=== PATIENT | male | born 1930 | race Caucasian/White ===

== ENCOUNTER 2017-10-27 10:37 | Emergency (ER) | payer OTHER, MEDICARE ==
--- NOTE | 2017-10-27 10:41 | PDOC ---
History of Present Illness - General Chief Complaint: Cold Symptoms Stated Complaint: COUGH Time Seen by Provider: 10/27/17 10:38 - History of Present Illness Initial Comments: 10/27/17 10:41 86 y/o male with significant past medical history of CVA with right sided hemiparesis, Parkinsons disease, DVTs, hyperlipidemia, hypertension, BPH, paroxysmal Afib (on Coumadin) p/w 1.5 weeks of cough. Cough has been constant, worse at night, initially non productive, now productive of clear phlegm. Family tried cough syrup and tea which has not helped. brought pt today as they cough has persisted for so long. No SOB, CP, fevers, chills, abd pain, n/v/ d, new weakness or numbness. Cough had a cold a few weeks ago. PMD is Dr. Juarez, states they were unable to get an appointment. Past History - Past Medical History Allergies/Adverse Reactions: Allergies Allergy/AdvReac Type Severity Reaction Status Date / Time bacitracin Allergy Rash Verified 07/02/16 16:44 venom-honey bee Allergy Verified 07/02/16 16:44 [bee venom (honey bee)] Home Medications: Ambulatory Orders Atorvastatin Ca [Lipitor] 20 mg PO HS 03/27/15 Carbidopa/Levodopa [Carbidopa-Levo ER 50-200 Tab] 1 each PO QID 03/27/15 Dutasteride [Avodart] 0.5 mg PO HS 03/27/15 Mirabegron [Myrbetriq] 50 mg PO HS 03/27/15 Nifedipine [Nifediac cc] 90 mg PO DAILY 03/27/15 Dorzolamide HCl/Timolol Maleat [Cosopt Eye Drops] 10 ml OP HS 01/17/16 Warfarin Na [Coumadin -] 5 mg PO DAILY@1800 01/17/16 Multivitamins [Multivit ([facility] Formulary)] 1 tab PO DAILY 07/02/16 Solifenacin Succinate [Vesicare -] 5 mg PO DAILY 07/02/16 Acetaminophen [Tylenol .Regular Strength -] 650 mg PO Q6H PRN #0 tablet Pramipexole Dihydrochloride [Mirapex -] 0.5 mg PO HS 10/27/17 Quetiapine Fumarate [Seroquel -] 50 mg PO HS 10/27/17 Anemia: No Asthma: No Cancer: Yes (Basal Cell) Cardiac Disorders: Yes (a-fib) CVA: Yes (09/2011, RIGHT HEMIPARESIS) COPD: No CHF: No Dementia: No Diabetes: No GI Disorders: No Disorders: No HTN: Yes Hypercholesterolemia: Yes Liver Disease: No Seizures: No Thyroid Disease: No - Surgical History Abdominal Surgery: No Appendectomy: No Cardiac Surgery: No Cholecystectomy: No Lung Surgery: No Neurologic Surgery: No Orthopedic Surgery: No - Suicide/Smoking/Psychosocial Hx Smoking History: Unknown if ever smoked Have you smoked in the past 12 months: No Number of Cigarettes Smoked Daily: 10 If you are a former smoker, when did you quit?: 20 yrs ago Hx Alcohol Use: No Drug/Substance Use Hx: No Substance Use Type: None Hx Substance Use Treatment: No Review of Systems - Review of Systems Comments:: 10/27/17 11:10 GENERAL/CONSTITUTIONAL: No fever or chills. No weakness. HEAD, EYES, EARS, NOSE AND THROAT: No change in vision. No ear pain or discharge. No sore throat. GASTROINTESTINAL: No nausea, vomiting, diarrhea or constipation. GENITOURINARY: No dysuria, frequency, or change in urination. CARDIOVASCULAR: No chest pain or shortness of breath. RESPIRATORY: +cough, no wheezing, or hemoptysis. MUSCULOSKELETAL: No joint or muscle swelling or pain. No neck or back pain. SKIN: No rash NEUROLOGIC: No headache, vertigo, loss of consciousness, or change in strength/ sensation. ENDOCRINE: No increased thirst. No abnormal weight change. HEMATOLOGIC/LYMPHATIC: No anemia, easy bleeding, or history of blood clots. ALLERGIC/IMMUNOLOGIC: No hives or skin allergy. *Physical Exam - Physical Exam Comments: 10/27/17 11:12 GENERAL: Awake, alert, and fully oriented, in no acute distress HEAD: No signs of trauma EYES: PERRLA, EOMI, sclera anicteric, conjunctiva clear ENT: Auricles normal inspection, hearing grossly normal, nares patent, oropharynx clear without exudates. Moist mucosa NECK: Normal ROM, supple, no lymphadenopathy, JVD, or masses LUNGS: Initial mild exp wheezing, improves with subsequent breaths, no crackles or rhonchi, good air movement, no increased WOB HEART: Regular rate and rhythm, normal S1 and S2, no murmurs, rubs or gallops ABDOMEN: Soft, nontender, normoactive bowel sounds. No guarding, no rebound. No masses EXTREMITIES: Normal range of motion, no edema. No clubbing or cyanosis. No cords, erythema, or tenderness NEUROLOGICAL: Normal speech, cranial nerves intact, +RUE and RLE weakness SKIN: Warm, Dry, normal turgor, no rashes or lesions noted. ED Treatment Course - LABORATORY CBC & Chemistry Diagram: 10/27/17 11:10 10/27/17 11:10 Medical Decision Making - Medical Decision Making 10/27/17 11:28 86-year-old male with multiple medical problems, distant smoking presents with cough for 1.5 weeks. Vitals are unremarkable, pt satting 98% on RA. Exam with initial wheezing however wheezing cleared with subsequent breaths. Patient likely has bronchitis, however will obtain CXR to r/o infiltrate. 10/27/17 12:06 Initial CXR limited, pt sent to rad dept for rpt to r/o infiltrate. O2 sat is 99 % on RA. Rpt CXR looks clear, awaiting official read. WIll tx with azithro and pred for likely bronchitis. Updated Dr. Alessandro Pal about pt, she agrees with plan. Discussed potential for INR level to rise with azithro and need to have INR checked sooner than in 2 weeks, pt and express understanding and will see Dr. Alessandro Pal next week. 10/27/17 12:27 Called radiology to obtain read of CXR. No cook pickled meat. is requesting the patient leave as she only has the aide for another 30 mins and she needs assistance getting the patient into the house. 10/27/17 12:33 Discussed repeat CXR with Dr. Shay from radiology, no sign of infiltrate or consolidation. Will treat for bronchitis. I discussed the physical exam findings, ancillary test results and final diagnoses with the patient. I answered all of the patient's questions. The patient was satisfied with the care received and felt comfortable with the discharge plan and treatment plan. The patient will call their primary care physician within 24 hours to arrange follow-up and will return to the Emergency Department with any new, persistent or worsening symptoms. *DC/Admit/Observation/Transfer Diagnosis at time of Disposition: Acute bronchitis - Discharge Dispostion Disposition: HOME Condition at time of disposition: Stable Admit: No - Referrals - Patient Instructions Printed Discharge Instructions: DI for Acute Bronchitis Additional Instructions: Take your prednisone and azithromycin as prescribed. Begin both tomorrow as you received the first dose today in the emergency department. As discussed, the azithromycin may interfere with the coumadin and thus the INR or coumadin level must be checked within 1 week. I have discussed this with Dr. Alessandro Pal who is expecting to see you in her office next week. Return to the emergency department if you have any new, worsening, or concerning symptoms. - Post Discharge Activity - Attestations Physician Attestion: 10/27/17 12:36 I, Dr. Jenaro Erickson MD, attest that this document has been prepared under my direction and personally reviewed by me in its entirety. I further attest, that it accurately reflects all work, treatment, procedures and medical decision -making performed by me.
[2017-10-27 11:03] VITALS: BP 141/72; PULSE 76; TEMP 98.7; BMI 29.0
[2017-10-27 11:20] LABS: BASO % 1.5 % (0-2.0); EOS % 2.3 % (0-4.5); MCH 31.8 pg (25.7-33.7); MCHC 34.5 g/dl (32.0-35.9); MEAN CELL VOLUME 92.3 fl (80-96); MEAN PLT VOLUME 7.7 fl (7.5-11.1); NEUT % 64.5 % (42.8-82.8); PLATELET COUNT 372 K/MM3 (134-434); RDW 12.9 % (11.9-15.9)
[2017-10-27] MEDS ORDERED: AZITHROMYCIN 500 MG TABLET PO ONE (11:31)
[2017-10-27] MEDS ORDERED: AZITHROMYCIN 500 MG TABLET ONE (11:34)
[2017-10-27 11:40] LABS: ALBUMIN 3.5 g/dl (3.5-5.0); ALK PHOS 61 U/L (32-92); ANION GAP 7 (8-16); CALCIUM 9.1 mg/dl (8.4-10.2); CO2 27 mmol/L (22-28); CREATININE 0.9 mg/dl (0.6-1.3); GLUCOSE,RANDOM 96 mg/dl (74-106); SGOT/AST 22 U/L (10-42); SGPT/ALT 10 U/L (10-40)
[2017-10-27 11:42] LABS: BILIRUBIN,TOTAL < 0.3 mg/dl (0.2-1.0)
[2017-10-27] MEDS ORDERED: AZITHROMYCIN 250 MG TABLET ONE (11:48)
[2017-10-27] MEDS ORDERED: predniSONE 20 MG TABLET (UD) PO ONE (12:05)
[2017-10-27] MEDS ORDERED: predniSONE 10 MG TABLET (UD) ONE (12:06)
[2017-10-27] MEDS ORDERED: predniSONE 20 MG TABLET (UD) ONE (12:06)
== END 2017-10-27 12:41 | disposition home or self-care (01) ==
LOC: FER 10:37
DX: J04.0 Acute laryngitis (principal); G20 Parkinson's disease; I63.9 Cerebral infarction, unspecified; E78.5 Hyperlipidemia, unspecified; I10 Essential (primary) hypertension; N40.0 Benign prostatic hyperplasia without lower urinary tract symptoms; I48.91 Unspecified atrial fibrillation; Z79.01 Long term (current) use of anticoagulants
CPT/HCPCS: 36415; 71010-TC; 71020-TC; 80053; 85025; 99281-25

== ENCOUNTER 2018-05-17 11:42 | Observation (INO) | payer OTHER, MEDICARE ==
--- NOTE | 2018-05-17 12:59 | PDOC ---
History of Present Illness - General Chief Complaint: Rectal Bleed Stated Complaint: SENT BY PMD RECTAL BLEED ELEVATED INR Time Seen by Provider: 05/17/18 12:05 History Source: Patient, Care Provider Exam Limitations: No Limitations - History of Present Illness Initial Comments: 05/17/18 12:54 87-year-old male history of paroxysmal A. fib, prior CVA, Parkinson's disease, prior DVT/PE on Coumadin, hypertension, hyperlipidemia sent here from Dr. Alessandro Atkinson office for an elevated INR and reports of a GI bleed. Patient states he has been having dark melanotic appearing stools since yesterday. One week ago from today he did have an episode of bright red blood per rectum. Denies any abdominal pain denies any chest pain or shortness of breath does not feel lightheaded no history of prior GI bleed no trauma patient takes currently 7.5 mg of Coumadin daily. Most recent INR checked a few days ago was over 3 otherwise no new medications Past History - Past Medical History Allergies/Adverse Reactions: Allergies Allergy/AdvReac Type Severity Reaction Status Date / Time bacitracin Allergy Rash Verified 05/17/18 11:52 venom-honey bee Allergy Verified 05/17/18 11:53 [bee venom (honey bee)] Home Medications: Ambulatory Orders Atorvastatin Ca [Lipitor] 20 mg PO HS 03/27/15 Carbidopa/Levodopa [Carbidopa-Levo ER 50-200 Tab] 1 each PO QID 03/27/15 Dutasteride [Avodart] 0.5 mg PO HS 03/27/15 Mirabegron [Myrbetriq] 50 mg PO HS 03/27/15 Nifedipine [Nifediac cc] 90 mg PO DAILY 03/27/15 Dorzolamide HCl/Timolol Maleat [Cosopt Eye Drops] 10 ml OP HS 01/17/16 Warfarin Na [Coumadin -] 5.5 mg PO DAILY@1800 01/17/16 Multivitamins [Multivit ([facility] Formul[facility])] 1 tab PO DAILY 07/02/16 Pramipexole Dihydrochloride [Mirapex -] 0.5 mg PO HS 10/27/17 Quetiapine Fumarate [Seroquel -] 50 mg PO HS 10/27/17 Cholecalciferol (Vitamin D3) [Vitamin D3] 1,000 unit PO DAILY 05/17/18 Anemia: No Asthma: No Cancer: Yes (Basal Cell) Cardiac Disorders: Yes (a-fib) CVA: Yes (09/2011, RIGHT HEMIPARESIS) COPD: No CHF: No DVT: No Dementia: No Diabetes: No GI Disorders: No Disorders: No HTN: Yes Hypercholesterolemia: Yes Liver Disease: No Seizures: No Thyroid Disease: No Other medical history: PARKINSONS - Surgical History Abdominal Surgery: No Appendectomy: No Cardiac Surgery: No Cholecystectomy: No Lung Surgery: No Neurologic Surgery: No Orthopedic Surgery: No - Suicide/Smoking/Psychosocial Hx Smoking History: Former smoker Have you smoked in the past 12 months: No Number of Cigarettes Smoked Daily: 10 If you are a former smoker, when did you quit?: 40 yrs ago Information on smoking cessation initiated: No Hx Alcohol Use: No Drug/Substance Use Hx: No Substance Use Type: None Hx Substance Use Treatment: No Review of Systems - Review of Systems Constitutional: No: Chills, Diaphoresis, Fever Respiratory: No: Orthopnea, Shortness of Breath Cardiac (ROS): No: Chest Pain ABD/GI: Yes: Rectal Bleeding : No: Burning Musculoskeletal: No: Back Pain All Other Systems: Reviewed and Negative *Physical Exam - Vital Signs Last Vital Signs Temp Pulse Resp BP Pulse Ox 98 F 70 20 130/69 98 05/17/18 11:51 05/17/18 11:51 05/17/18 11:51 05/17/18 11:51 05/17/18 11:51 - Physical Exam General Appearance: Yes: Appropriately Dressed HEENT: positive: Normal ENT Inspection Neck: positive: Trachea midline Respiratory/Chest: positive: Lungs Clear, Normal Breath Sounds Cardiovascular: positive: Regular Rhythm, Regular Rate, S1, S2. negative: Edema Gastrointestinal/Abdominal: positive: Normal Bowel Sounds, Flat, Soft. negative : Tender Rectal Exam: positive: melena Extremity: positive: Normal Capillary Refill, Normal Inspection Integumentary: positive: Normal Color, Dry, Warm Neurologic: positive: Fully Oriented, Alert, Normal Mood/Affect Heart Score/ECG Review #1 General ECG Interpretation: Sinus Rhythm, Normal Rate (69) Compared to previous ECG there are: No significant change (comparison 03/08/16 TWI V4 - V6, I , AVL, LBBB) - [place]: Left [place] Deviation - P and HI Atrial Enlargement: Left Prolonged HI Interval: 1st Degree Block(>20mils) - QRS Widened: LBBB ED Treatment Course - LABORATORY CBC & Chemistry Diagram: 05/17/18 12:26 05/17/18 12:26 Medical Decision Making - Medical Decision Making 05/17/18 12:58 87-year-old male history of diabetes, paroxysmal A. fib, CVA, and DVT here with melanotic stools on Coumadin. Differential includes anemia, lower GI bleed versus upper GI bleed, plan CBC CMP INR rectal exam demonstrates melanotic stool. Patient will likely require admission for observation we'll give for tonics 40 mg likely hold Coumadin and consider vitamin K pending INR level. Discussed with Dr. Annabelle Atkinson witness to the hospitalist 05/17/18 14:09 pt with h/h stable, INR 2.31, melenotic stool however. will admit for observation serial h/h. d/w dr. hiram atkinson, admit to hospitalist *DC/Admit/Observation/Transfer Diagnosis at time of Disposition: GI bleed, Coagulopathy - Discharge Dispostion Condition at time of disposition: Stable Decision to Admit order: Yes - Referrals - Patient Instructions - Post Discharge Activity
[2018-05-17 13:16] LABS: BASO % 0.6 % (0-2.0); EOS % 2.3 % (0-4.5); HEMOGLOBIN 14.2 GM/dl (11.7-16.9); LYMPH % 24.1 % (8-40); MCH 31.9 pg (25.7-33.7); MCHC 34.6 g/dl (32.0-35.9); MEAN CELL VOLUME 92.1 fl (80-96); MONO % 10.3 % (3.8-10.2); NEUT % 62.7 % (42.8-82.8); PLATELET COUNT 316 K/MM3 (134-434); RBC 4.45 M/mm3 (4.00-5.60); RDW 13.2 % (11.9-15.9); WHITE BLOOD COUNT 10.7 K/mm3 (4.0-10.8)
[2018-05-17 13:26] LABS: ALBUMIN 3.7 g/dl (3.5-5.0); ALK PHOS 48 U/L (32-92); ANION GAP 4 (8-16); BILIRUBIN,TOTAL 0.7 mg/dl (0.2-1.0); BLOOD UREA NITROGEN 21 mg/dl (7-18); CALCIUM 8.9 mg/dl (8.4-10.2); CHLORIDE 104 mmol/L (98-107); CO2 29 mmol/L (22-28); GLUCOSE,RANDOM 104 mg/dl (74-106); SGOT/AST 21 U/L (10-42); SGPT/ALT 6 U/L (10-40); SODIUM 137 mmol/L (136-145); TOT PROT 6.3 g/dl (6.4-8.3)
[2018-05-17 13:37] LABS: ACTIVATED PTT 41.5 SECONDS (25.2-36.5)
[2018-05-17 13:41] LABS: INR 2.31 (0.82-1.09); PROTHROMBIN TIME (PATIENT) 25.4 SEC (10.2-13.0)
[2018-05-17] MEDS ORDERED: PANTOPRAZOLE SODIUM 40 MG VIAL IVPUSH ONE (13:50)
[2018-05-17] MEDS ORDERED: PANTOPRAZOLE SODIUM 40 MG VIAL ONE (14:03)
[2018-05-17] MEDS ORDERED: ACETAMINOPHEN 325 MG TABLET (FP) PO PRN (15:14)
[2018-05-17] MEDS ORDERED: ONDANSETRON 4 MG/2 ML VIAL IVPUSH PRN (15:14)
[2018-05-17] MEDS ORDERED: SODIUM CHLORIDE 0.45% 1,000 ML IV SCH (15:30)
[2018-05-17 17:03] VITALS: BMI 28.8
--- NOTE | 2018-05-17 20:29 | HP ---
CHIEF COMPLAINT: melena PCP: HISTORY OF PRESENT ILLNESS: 87 y/o man who presents to the ED with melena x2 episodes. Patient denies abd cramping, pain, N/V. Patient denies dizziness or lightheadedness. patient denies history of hemorrhoids ER course was notable for: (1) H/H (2) Stool occult positive (3) Recent Travel: None PAST MEDICAL HISTORY: CVA HTN HLD Parkinson's Disease BPH PAST SURGICAL HISTORY: Social History: Smoking: former Alcohol: none Drugs: none lives with spouse Family History: Allergies bacitracin Allergy (Verified 05/17/18 11:52) Rash venom-honey bee [bee venom (honey bee)] Allergy (Verified 05/17/18 11:53) HOME MEDICATIONS: Home Medications Medication Instructions Recorded Atorvastatin Ca [Lipitor] 20 mg PO HS 03/27/15 Carbidopa/Levodopa [Carbidopa-Levo 1 each PO QID 03/27/15 ER 50-200 Tab] Dutasteride [Avodart] 0.5 mg PO HS 03/27/15 Mirabegron [Myrbetriq] 50 mg PO HS 03/27/15 Nifedipine [Nifediac cc] 90 mg PO DAILY 03/27/15 Dorzolamide HCl/Timolol Maleat 10 ml OP HS 01/17/16 [Cosopt Eye Drops] Warfarin Na [Coumadin -] 5.5 mg PO DAILY@1800 01/17/16 Multivitamins [Multivit ([facility] 1 tab PO DAILY 07/02/16 Formulary)] Pramipexole Dihydrochloride 0.5 mg PO HS 10/27/17 [Mirapex -] Quetiapin e Fumarate [Seroquel -] 50 mg PO HS 10/27/17 Cholecalciferol (Vitamin D3) 1,000 unit PO DAILY 05/17/18 [Vitamin D3] REVIEW OF SYSTEMS CONSTITUTIONAL: Absent: fever, chills, diaphoresis, generalized weakness, malaise, loss of appetite, weight change HEENT: Absent: rhinorrhea, nasal congestion, throat pain, throat swelling, difficulty swallowing, mouth swelling, ear pain, eye pain, visual changes CARDIOVASCULAR: Absent: chest pain, syncope, palpitations, irregular heart rate, lightheadedness , peripheral edema RESPIRATORY: Absent: cough, shortness of breath, dyspnea with exertion, orthopnea, wheezing, stridor, hemoptysis GASTROINTESTINAL:melena, Absent: abdominal pain, abdominal distension, nausea, vomiting, diarrhea, constipation, hematochezia GENITOURINARY: Absent: dysuria, frequency, urgency, hesitancy, hematuria, flank pain, genital pain MUSCULOSKELETAL: Absent: myalgia, arthralgia, joint swelling, back pain, neck pain SKIN: Absent: rash, itching, pallor HEMATOLOGIC/IMMUNOLOGIC: Absent: easy bleeding, easy bruising, lymphadenopathy, frequent infections ENDOCRINE: Absent: unexplained weight gain, unexplained weight loss, heat intolerance, cold intolerance NEUROLOGIC: Absent: headache, focal weakness or paresthesias, dizziness, unsteady gait, seizure, mental status changes, bladder or bowel incontinence PSYCHIATRIC: Absent: anxiety, depression, suicidal or homicidal ideation, hallucinations. PHYSICAL EXAMINATION Vital Signs - 24 hr 05/17/18 05/17/18 05/17/18 11:51 15:10 16:28 Temperature 98 F 98 F 98.1 F Pulse Rate 70 77 Pulse Rate [ 72 Right] Respiratory 20 20 19 Rate Blood Pressure 130/69 151/65 Blood Pressure 144/77 [Left Arm] O2 Sat by Pulse 98 97 Oximetry (%) 05/17/18 05/17/18 19:15 20:15 Temperature 98.0 F Pulse Rate 74 Pulse Rate [ Right] Respiratory 18 Rate Blood Pressure 157/69 Blood Pressure [Left Arm] O2 Sat by Pulse 96 Oximetry (%) GENERAL: Awake, alert, and fully oriented, in no acute distress. HEAD: Normal with no signs of trauma. EYES: Pupils equal, round and reactive to light, extraocular movements intact, sclera anicteric, conjunctiva clear. No lid lag. EARS, NOSE, THROAT: Ears normal, nares patent, oropharynx clear without exudates. Moist mucous membranes. NECK: Normal range of motion, supple without lymphadenopathy, JVD, or masses. LUNGS: Breath sounds equal, clear to auscultation bilaterally. No wheezes, and no crackles. No accessory muscle use. HEART: Regular rate and rhythm, normal S1 and S2 without murmur, rub or gallop. ABDOMEN: Soft, nontender, not distended, normoactive bowel sounds, no guarding, no rebound, no masses. No hepatomegaly or splenomegaly. MUSCULOSKELETAL: Normal range of motion at all joints. No bony deformities or tenderness. No CVA tenderness. UPPER EXTREMITIES: 2+ pulses, warm, well-perfused. No cyanosis. No clubbing. No peripheral edema. LOWER EXTREMITIES: 2+ pulses, warm, well-perfused. No calf tenderness. No peripheral edema. NEUROLOGICAL: Cranial nerves II-XII intact. Normal speech. Gait not observed. PSYCHIATRIC: Cooperative. Good eye contact. Appropriate mood and affect. SKIN: Warm, dry, normal turgor, no rashes or lesions noted, normal capillary refill. Laboratory Results - last 24 hr 05/17/18 05/17/18 05/17/18 12:26 12:26 12:26 WBC 10.7 RBC 4.45 Hgb 14.2 Hct 41.0 MCV 92.1 MCH 31.9 MCHC 34.6 RDW 13.2 Plt Count 316 MPV 8.0 Absolute Neuts (auto) 6.7 Neutrophils % 62.7 Lymphocytes % 24.1 Monocytes % 10.3 H Eosinophils % 2.3 Basophils % 0.6 PT with INR 25.4 H INR 2.31 H PTT (Actin FS) 41.5 H Sodium 137 Potassium 4.0 Chloride 104 Carbon Dioxide 29 H Anion Gap 4 L BUN 21 H Creatinine 1.0 Creat Clearance w eGFR > 60 Random Glucose 104 Calcium 8.9 Total Bilirubin 0.7 AST 21 ALT 6 L D Alkaline Phosphatase 48 Total Protein 6.3 L Albumin 3.7 Stool Occult Blood Blood Type Antibody Screen 05/17/18 05/17/18 05/17/18 12:26 12:26 13:18 WBC RBC Hgb Hct MCV MCH MCHC RDW Plt Count MPV Absolute Neuts (auto) Neutrophils % Lymphocytes % Monocytes % Eosinophils % Basophils % PT with INR INR PTT (Actin FS) Sodium Potassium Chloride Carbon Dioxide Anion Gap BUN Creatinine Creat Clearance w eGFR Random Glucose Calcium Total Bilirubin AST ALT Alkaline Phosphatase Total Protein Albumin Stool Occult Blood Positive Blood Type B POSITIVE Cancelled Antibody Screen Negative Cancelled 05/17/18 13:58 WBC RBC Hgb Hct MCV MCH MCHC RDW Plt Count MPV Absolute Neuts (auto) Neutrophils % Lymphocytes % Monocytes % Eosinophils % Basophils % PT with INR INR PTT (Actin FS) Sodium Potassium Chloride Carbon Dioxide Anion Gap BUN Creatinine Creat Clearance w eGFR Random Glucose Calcium Total Bilirubin AST ALT Alkaline Phosphatase Total Protein Albumin Stool Occult Blood Blood Type Cancelled Antibody Screen ASSESSMENT/PLAN: 87 y/o man placed in Tele Observation for GI Bleed Plan: Tele monitoring appreciate GI consult monitor CBC. BMP IVF NPO Continue home meds SCDs Problem List - Problem (1) GI bleed Code(s): K92.2 - GASTROINTESTINAL HEMORRHAGE, UNSPECIFIED (2) HTN (hypertension) Code(s): I10 - ESSENTIAL (PRIMARY) HYPERTENSION (3) Hyperlipemia Code(s): E78.5 - HYPERLIPIDEMIA, UNSPECIFIED (4) Parkinson disease Code(s): G20 - PARKINSON'S DISEASE (5) Weakness due to cerebrovascular accident (CVA) Code(s): I63.9 - CEREBRAL INFARCTION, UNSPECIFIED; R53.1 - WEAKNESS Visit type - Emergency Visit Emergency Visit: Yes ED Registration Date: 05/17/18 Care time: The patient presented to the Emergency Department on the above date and was hospitalized for further evaluation of their emergent condition. - New Patient This patient is new to me today: Yes Date on this admission: 05/17/18 - Critical Care Critical Care patient: No Hospitalist Screening - Colonoscopy Questionnaire Colonoscopy Questionnaire: Colonoscopy Questionnaire - Patient: 50 - 75 years old and never had a screening colonoscopy: Unknown History of colon or rectal polyps, or CA: Unknown History of IBD, Crohn's disease or UC: Unknown History of abdominal radiation therapy as a child: Unknown - Relative: 1 with colon or rectal CA, or polyps at age 60 or younger: Unknown Colon or rectal CA diagnosed at age 45 or younger: Unknown Multiple relatives with colon or rectal CA: Unknown - Outcome: Screening Result: Negative Screen
[2018-05-17] MEDS: PANTOPRAZOLE 40 MG TABLET (FP) PO SCH (21:42)
[2018-05-17] MEDS: TIMOLOL 0.5% OPHTHALMIC SOL 5 ML BOTTLE OU SCH (21:43)
[2018-05-17] MEDS: DORZOLAMIDE 2% HCL OPHTHALMIC SOLUTION 10 ML BOTTLE OU SCH (21:43)
[2018-05-17] MEDS ORDERED: PT OWN MED DRAWER 7, Y5N ONE (21:55)
[2018-05-17] MEDS ORDERED: PRAMIPEXOLE DIHYDROCHLORIDE 0.25 MG TABLET PO SCH (22:00)
[2018-05-17] MEDS ORDERED: DUTASTERIDE 0.5 MG CAP (FP) PO SCH (22:00)
[2018-05-17] MEDS ORDERED: PATIENT'S OWN MEDICATION (NON-FORMULARY) (Mirabegron [Myrbetriq] 50 MG) PO SCH (22:00)
[2018-05-17] MEDS ORDERED: PATIENT'S OWN MEDICATION (NON-FORMULARY) (Dorzolamide Hcl/Timolol Maleat [Cosopt Eye Drops OU SCH (22:00)
[2018-05-17] MEDS ORDERED: QUEtiapine FUMARATE 25 MG TABLET (FP) PO SCH (22:00)
[2018-05-17] MEDS ORDERED: ATORVASTATIN CA 20 MG TABLET (FP) PO SCH (22:00)
--- NOTE | 2018-05-18 08:51 | DS ---
Physical Exam: SUBJECTIVE: Patient seen and examined OBJECTIVE: Vital Signs Period Temp Pulse Resp BP Sys/Day Pulse Ox Last 24 Hr 97.7 F-98.1 F 68-82 18-20 130-157/65-77 93-98 PHYSICAL EXAM GENERAL: The patient is awake, alert, and fully oriented, in no acute distress. HEAD: Normal with no signs of trauma. EYES: PERRL, extraocular movements intact, sclera anicteric, conjunctiva clear. ENT: Ears normal, nares patent, oropharynx clear without exudates, moist mucous membranes. NECK: Trachea midline, full range of motion, supple. LUNGS: Breath sounds equal, clear to auscultation bilaterally, no wheezes, no crackles, no accessory muscle use. HEART: Regular rate and rhythm, S1, S2 without murmur, rub or gallop. ABDOMEN: Soft, nontender, nondistended, normoactive bowel sounds, no guarding, no rebound, no hepatosplenomegaly, no masses. EXTREMITIES: 2+ pulses, warm, well-perfused, no edema. NEUROLOGICAL: Cranial nerves II through XII grossly intact. Normal speech, gait not observed. PSYCH: Normal mood, normal affect. SKIN: Warm, dry, normal turgor, no rashes or lesions noted. LABS Laboratory Results - last 24 hr 05/17/18 05/17/18 05/17/18 12:26 12:26 12:26 WBC 10.7 RBC 4.45 Hgb 14.2 Hct 41.0 MCV 92.1 MCH 31.9 MCHC 34.6 RDW 13.2 Plt Count 316 MPV 8.0 Absolute Neuts (auto) 6.7 Neutrophils % 62.7 Lymphocytes % 24.1 Monocytes % 10.3 H Eosinophils % 2.3 Basophils % 0.6 PT with INR 25.4 H INR 2.31 H PTT (Actin FS) 41.5 H Sodium 137 Potassium 4.0 Chloride 104 Carbon Dioxide 29 H Anion Gap 4 L BUN 21 H Creatinine 1.0 Creat Clearance w eGFR > 60 Random Glucose 104 Calcium 8.9 Total Bilirubin 0.7 AST 21 ALT 6 L D Alkaline Phosphatase 48 Total Protein 6.3 L Albumin 3.7 Stool Occult Blood Blood Type Antibody Screen 05/17/18 05/17/18 05/17/18 12:26 12:26 13:18 WBC RBC Hgb Hct MCV MCH MCHC RDW Plt Count MPV Absolute Neuts (auto) Neutrophils % Lymphocytes % Monocytes % Eosinophils % Basophils % PT with INR INR PTT (Actin FS) Sodium Potassium Chloride Carbon Dioxide Anion Gap BUN Creatinine Creat Clearance w eGFR Random Glucose Calcium Total Bilirubin AST ALT Alkaline Phosphatase Total Protein Albumin Stool Occult Blood Positive Blood Type B POSITIVE Cancelled Antibody Screen Negative Cancelled 05/17/18 13:58 WBC RBC Hgb Hct MCV MCH MCHC RDW Plt Count MPV Absolute Neuts (auto) Neutrophils % Lymphocytes % Monocytes % Eosinophils % Basophils % PT with INR INR PTT (Actin FS) Sodium Potassium Chloride Carbon Dioxide Anion Gap BUN Creatinine Creat Clearance w eGFR Random Glucose Calcium Total Bilirubin AST ALT Alkaline Phosphatase Total Protein Albumin Stool Occult Blood Blood Type Cancelled Antibody Screen HOSPITAL COURSE: Date of Admission:05/17/18 Date of Discharge: 05/18/18 Minutes to complete discharge: 45 Discharge Summary Reason For Visit: SENT BY PMD RECTAL BLEED ELEVATED INR Current Active Problems Coagulopathy (Acute) GI bleed (Acute) Condition: Stable - Instructions - Home Medications Comprehensive Discharge Medication List: Ambulatory Orders Atorvastatin Ca [Lipitor] 20 mg PO HS 03/27/15 Carbidopa/Levodopa [Carbidopa-Levo ER 50-200 Tab] 1 each PO QID 03/27/15 Dutasteride [Avodart] 0.5 mg PO HS 03/27/15 Mirabegron [Myrbetriq] 50 mg PO HS 03/27/15 Nifedipine [Nifediac cc] 90 mg PO DAILY 03/27/15 Dorzolamide HCl/Timolol Maleat [Cosopt Eye Drops] 10 ml OP HS 01/17/16 Warfarin Na [Coumadin -] 5.5 mg PO DAILY@1800 01/17/16 Multivitamins [Multivit ([facility] Formulary)] 1 tab PO DAILY 07/02/16 Pramipexole Dihydrochloride [Mirapex -] 0.5 mg PO HS 10/27/17 Quetiapine Fumarate [Seroquel -] 50 mg PO HS 10/27/17 Cholecalciferol (Vitamin D3) [Vitamin D3] 1,000 unit PO DAILY 05/17/18
[2018-05-18] MEDS ORDERED: PT OWN MED DRAWER 7, Y5N ONE (09:21)
[2018-05-18] MEDS: PANTOPRAZOLE 40 MG TABLET (FP) PO SCH (09:27)
[2018-05-18] MEDS: DORZOLAMIDE 2% HCL OPHTHALMIC SOLUTION 10 ML BOTTLE OU SCH (09:28)
[2018-05-18] MEDS: TIMOLOL 0.5% OPHTHALMIC SOL 5 ML BOTTLE OU SCH (09:28)
--- NOTE | 2018-05-18 09:48 | PN ---
Progress Note (short form) - Note Progress Note: Patient seen and consult dictated. 87 yo male with hx A fib, CVA, hx DVT on Coumadin with episode (?1 or 2) of some dark red blood in stool ?after straining at BM. No further bleeding x 48 hours and Hct 41% No signs of active bleeding at present with therapeutic INR. In view of age, clinical status/hx and lack of further bleeding, would defer GI endoscopy unless rebleeds (?hemorrhoidal source?) Can begin on PO liquid diet and advance as tolerated.
--- NOTE | 2018-05-18 09:48 | CONS ---
DATE OF CONSULTATION: 05/18/2018 CHIEF COMPLAINT: Asked to evaluate this 87-year-old gentleman with GI bleeding. HISTORY OF PRESENT ILLNESS: The patient is an 87-year-old gentleman with a history of atrial fibrillation, prior stroke, and Parkinson's disease as well as prior DVT, who is on Coumadin. He also has history of hypertension and hyperlipidemia. He was admitted to the hospital with a history of passing some dark red blood on one occasion after moving his bowels 1 day prior to admission. He had been on Coumadin, as mentioned, and was sent to the emergency room for evaluation. His laboratory tests included a hemoglobin of 14.2 with hematocrit of 41%. His INR was 2.31, and his chemistry is unremarkable with a BUN of 21 and a creatinine of 1.0. The patient's hospital course has been notable for no further bleeding since admission and no further bowel movements. He remains with stable vital signs and afebrile. He has no prior history of GI bleeding and denies any abdominal pain, nausea, vomiting, or cramps. PHYSICAL EXAMINATION: General: He is a well-developed, well-nourished gentleman with restricted movement and ambulation due to Parkinson's disease. He appears comfortable. Lungs: Grossly clear. Cardiovascular: He has a slightly irregular heart rate. Abdomen: Soft, flat, and nontender. LABORATORY DATA: Is as aforementioned. ASSESSMENT: An 87-year-old gentleman with multiple medical issues including cardiac disease, prior stroke, Parkinson's, and deep vein thrombosis. He had some dark blood per rectum associated with moving his bowels, ?straining. Currently he has had no bleeding today or yesterday, with a stable hematocrit and vital signs. May have had some bleeding due to hemorrhoids. Cannot exclude other lower gastrointestinal tract pathology. Doubt upper gastrointestinal bleed in view of relatively stable hematocrit, vital signs, and renal function. Would follow clinically for the time being and defer gastrointestinal endoscopy unless the patient shows signs of further bleeding, especially in view of his underlying medical conditions. Will be available to reevaluate as needed. MEAGAN PEREZ M.D. [id number]
[2018-05-18] MEDS ORDERED: CHOLECALCIFEROL (VITAMIN D3) 1,000 UNIT TABLET (FP) PO SCH (10:00)
[2018-05-18] MEDS ORDERED: NIFEdipine E.R. 90 MG TABLET (FP) PO SCH (10:00)
[2018-05-18] MEDS ORDERED: MULTIVITAMINS (DAILY MVI) TABLET (FP) PO SCH (10:00)
--- NOTE | 2018-05-18 12:05 | EKG ---
Test Reason : Blood Pressure : / mmHG Vent. Rate : 069 BPM Atrial Rate : 069 BPM P-R Int : 216 ms QRS Dur : 154 ms QT Int : 450 ms P-R-T Axes : 059 -10 155 degrees QTc Int : 482 ms SINUS RHYTHM WITH 1ST DEGREE A-V BLOCK LEFT BUNDLE BRANCH BLOCK ABNORMAL ECG WHEN COMPARED WITH ECG OF 21-JAN-2016 23:47, NO SIGNIFICANT CHANGE WAS FOUND Confirmed by DAVID BELL, VENTURA ([id number]) on 05/18/2018 12:05:24 PM Referred By: TACHO Confirmed By:VENTURA HERNANDEZ MD
[2018-05-18 12:28] LABS: BASO % 0.8 % (0-2.0); EOS % 3.8 % (0-4.5); HEMATOCRIT 42.8 % (35.4-49); HEMOGLOBIN 14.5 GM/dl (11.7-16.9); LYMPH % 22.4 % (8-40); MCH 31.7 pg (25.7-33.7); MCHC 33.9 g/dl (32.0-35.9); MEAN CELL VOLUME 93.7 fl (80-96); MEAN PLT VOLUME 7.6 fl (7.5-11.1); MONO % 11.9 % (3.8-10.2); NEUT % 61.1 % (42.8-82.8); PLATELET COUNT 358 K/MM3 (134-434); RBC 4.57 M/mm3 (4.00-5.60); RDW 13.3 % (11.9-15.9)
[2018-05-18 12:52] LABS: ANION GAP 7 (8-16); BLOOD UREA NITROGEN 13 mg/dl (7-18); CALCIUM 8.4 mg/dl (8.4-10.2); CHLORIDE 100 mmol/L (98-107); CO2 30 mmol/L (22-28); CREATININE 0.9 mg/dl (0.6-1.3); GLUCOSE,RANDOM 108 mg/dl (74-106); POTASSIUM 3.5 mmol/L (3.5-5.1); SODIUM 137 mmol/L (136-145)
[2018-05-18 12:53] LABS: INR 1.58 (0.82-1.09); PROTHROMBIN TIME (PATIENT) 17.5 SEC (10.2-13.0)
[2018-05-18] MEDS ORDERED: POTASSIUM CHLORIDE TABS 20 MEQ TABLET.ER (FP) PO ONE (14:00)
[2018-05-18 15:14] VITALS: BP 140/58; PULSE 61; TEMP 97.5
== END 2018-05-18 16:45 | disposition home health service (06) ==
LOC: FER 11:42 → FM/S 14:10
PROVIDERS: ADMIT Internal Medicine; ATTEND Nurse Practitioner Family
PROC: 3E033GC Introduction of Other Therapeutic Substance into Peripheral Vein, Percutaneous Approach (ICD-10-PCS; principal; 2018-05-17)
PROC: 3E0337Z Introduction of Electrolytic and Water Balance Substance into Peripheral Vein, Percutaneous Approach (ICD-10-PCS; 2018-05-17)
DX: K92.2 Gastrointestinal hemorrhage, unspecified (principal); D68.9 Coagulation defect, unspecified; I10 Essential (primary) hypertension; E78.5 Hyperlipidemia, unspecified; I48.0 Paroxysmal atrial fibrillation; G20 Parkinson's disease; I69.351 Hemiplegia and hemiparesis following cerebral infarction affecting right dominant side; Z86.718 Personal history of other venous thrombosis and embolism; Z86.711 Personal history of pulmonary embolism; Z79.01 Long term (current) use of anticoagulants; Z88.1 Allergy status to other antibiotic agents; Z91.038 Other insect allergy status; Z87.891 Personal history of nicotine dependence; Z85.828 Personal history of other malignant neoplasm of skin
CPT/HCPCS: 36415; 80048; 80053; 82272; 85025; 85610; 85730; 86850; 86900; 86901; 93005; 96374; 99285-25; G0378

== ENCOUNTER 2018-08-25 05:54 | Emergency (ER) | payer OTHER, MEDICARE ==
[2018-08-25 06:11] VITALS: BMI 28.8
--- NOTE | 2018-08-25 06:15 | PDOC ---
History of Present Illness - General Chief Complaint: Altered Mental Status Stated Complaint: ALTERED MENTAL STATUS Time Seen by Provider: 08/25/18 06:15 History Source: Family Exam Limitations: No Limitations - History of Present Illness Initial Comments: 08/25/18 06:20 This is a 87-year-old male brought in by EMS for evaluation of altered mental status. Patient called EMS this morning. Patient said that he was confused and agitated and did not appear to recognize where he was. said at his baseline he normally is alert and oriented to his surroundings and her. Here in the emergency room patient denied any complaints. Patient did seem to have difficulty following commands and some of his answers were unintelligible PAST MEDICAL HISTORY: Hypertension, hyperlipidemia, CVA, atrial fibrillation, Parkinson's disease PAST SURGICAL HISTORY: no significant history FAMILY HISTORY: no pertinant history SOCIAL HISTORY: Pt lives with family and is retired MEDICATIONS: reviewed ALLERGIES: As per nursing notes ROS General: No fevers or chills, no weakness, no weight loss HEENT: No change in vision. No sore throat,. No ear pain CardioVascular: No chest pain or shortness of breath Respiratory:No cough, or wheezing. Gastrointestinal: no nausea, vomiting, diarrhea or constipation, No rectal bleeding Genitourinary: No dysuria, hematuria, or frequency Musculoskeletal: . No joint pain or swelling Neurologic: No headache, vertigo, dizziness or loss of consciousness, altered mental status Psychiatric: nor depression Skin: No rashes or easy bruising Endocrine: no increased thirst or abnormal weight change Allergic: no skin or latex allergy All other systems reviewed and normal Exam: General: Well-nourished well-developed individual, no acute distress HEENT: Throat: Normal, tonsils normal, no erythema or exudate Neck: Supple, no meningeal signs, no lymphadenopathy Eyes::Pupils equal reactive and round, extraocular motion intact Chest: Nontender to palpation Cardiac: S1-S2 normal, regular rate and rhythm, no murmurs rubs or gallops Respiratory: Lungs clear to auscultation bilateral Abdomen: Soft, nondistended, normal bowel sounds, there is no tenderness on palpation diffusely Extremities: Warm, dry, no cyanosis, clubbing, or edema Skin: No rashes Neuro: Alert and oriented x0, patient is grossly intact, moves all 4 extremities but does not follow commands Psych: Normal mood and affect 08/25/18 06:28 Assessment and plan: This is an 87-year-old male who comes in by ambulance for evaluation of altered mental status. The workup is initiated including his labs, head CT, EKG, chest x-ray. Past History - Past Medical History Allergies/Adverse Reactions: Allergies Allergy/AdvReac Type Severity Reaction Status Date / Time bacitracin Allergy Rash Verified 05/17/18 11:52 venom-honey bee Allergy Verified 05/17/18 11:53 [bee venom (honey bee)] Home Medications: Ambulatory Orders Atorvastatin Ca [Lipitor] 20 mg PO HS 03/27/15 Carbidopa/Levodopa [Carbidopa-Levo ER 50-200 Tab] 1 each PO QID 03/27/15 Dutasteride [Avodart] 0.5 mg PO HS 03/27/15 Mirabegron [Myrbetriq] 50 mg PO HS 03/27/15 Nifedipine [Nifediac cc] 90 mg PO DAILY 03/27/15 Dorzolamide HCl/Timolol Maleat [Cosopt Eye Drops] 10 ml OP HS 01/17/16 Warfarin Na [Coumadin -] 5.5 mg PO DAILY@1800 01/17/16 Multivitamins [Multivit ([facility] Formulary)] 1 tab PO DAILY 07/02/16 Pramipexole Dihydrochloride [Mirapex -] 0.5 mg PO HS 10/27/17 Quetiapine Fumarate [Seroquel -] 50 mg PO HS 10/27/17 Cholecalciferol (Vitamin D3) [Vitamin D3] 1,000 unit PO DAILY 05/17/18 Acetaminophen [Tylenol .Regular Strength -] 650 mg PO Q4H PRN tablet 05/18/18 Fesoterodine Fumarate [Toviaz] 4 mg PO DAILY 08/25/18 Anemia: No Asthma: No Cancer: Yes (Basal Cell) Cardiac Disorders: Yes (a-fib) CVA: Yes (09/2011, RIGHT HEMIPARESIS) COPD: No CHF: No DVT: No Dementia: No Diabetes: No GI Disorders: No Disorders: No HTN: Yes Hypercholesterolemia: Yes Liver Disease: No Seizures: No Thyroid Disease: No - Surgical History Abdominal Surgery: No Appendectomy: No Cardiac Surgery: No Cholecystectomy: No Lung Surgery: No Neurologic Surgery: No Orthopedic Surgery: No - Suicide/Smoking/Psychosocial Hx Smoking History: Former smoker Have you smoked in the past 12 months: No Number of Cigarettes Smoked Daily: 10 If you are a former smoker, when did you quit?: 40 yrs ago Information on smoking cessation initiated: No Hx Alcohol Use: No Drug/Substance Use Hx: No Substance Use Type: None Hx Substance Use Treatment: No *Physical Exam - Vital Signs Last Vital Signs Temp Pulse Resp BP Pulse Ox 97.9 F 64 16 171/79 H 96 08/25/18 06:03 08/25/18 06:03 08/25/18 06:03 08/25/18 06:03 08/25/18 06:03 ED Treatment Course - LABORATORY CBC & Chemistry Diagram: 08/25/18 06:45 08/25/18 06:45 *DC/Admit/Observation/Transfer Diagnosis at time of Disposition: Intracranial hemorrhage - Discharge Dispostion Disposition: TRANSFER ACUTE CARE/OTHER HOSP Condition at time of disposition: Stable - Referrals - Patient Instructions - Post Discharge Activity
[2018-08-25 07:19] LABS: BASO % 0.3 % (0-2.0); EOS % 2.7 % (0-4.5); HEMATOCRIT 44.8 % (35.4-49); HEMOGLOBIN 15.4 GM/dl (11.7-16.9); LYMPH % 14.4 % (8-40); MCH 32.2 pg (25.7-33.7); MCHC 34.5 g/dl (32.0-35.9); MEAN CELL VOLUME 93.4 fl (80-96); MEAN PLT VOLUME 7.9 fl (7.5-11.1); MONO % 10.1 % (3.8-10.2); NEUT % 72.5 % (42.8-82.8); PLATELET COUNT 281 K/MM3 (134-434); RBC 4.79 M/mm3 (4.00-5.60); RDW 12.9 % (11.9-15.9); WHITE BLOOD COUNT 9.2 K/mm3 (4.0-10.8)
[2018-08-25 07:24] LABS: ALBUMIN 3.6 g/dl (3.5-5.0); ALK PHOS 68 U/L (32-92); ANION GAP 6 MMOL/L (8-16); BILIRUBIN,TOTAL 0.5 mg/dl (0.2-1.0); BLOOD UREA NITROGEN 16 mg/dl (7-18); CALCIUM 8.8 mg/dl (8.4-10.2); CHLORIDE 103 mmol/L (98-107); CO2 29 mmol/L (22-28); CREATININE 0.9 mg/dl (0.6-1.3); GLUCOSE,RANDOM 100 mg/dl (74-106); POTASSIUM 4.1 mmol/L (3.5-5.1); SGOT/AST 25 U/L (10-42); SGPT/ALT 28 U/L (10-40); SODIUM 138 mmol/L (136-145); TOT PROT 6.7 g/dl (6.4-8.3)
[2018-08-25 07:27] LABS: URINE APPEARANCE Clear; URINE BILIRUBIN Negative (NEGATIVE); URINE COLOR Yellow; URINE GLUCOSE (UA) Negative (NEGATIVE); URINE KETONE Negative (NEGATIVE); URINE LEUK ESTERASE Negative (NEGATIVE); URINE NITRITE Negative (NEGATIVE); URINE PROTEIN 2+ (NEGATIVE); URINE UROBILINOGEN 0.2 (0.2-1.0)
--- NOTE | 2018-08-25 07:28 | PDOC ---
*Physical Exam - Vital Signs Last Vital Signs Temp Pulse Resp BP Pulse Ox 97.9 F 64 16 171/79 H 96 08/25/18 06:03 08/25/18 06:03 08/25/18 06:03 08/25/18 06:03 08/25/18 06:03 ED Treatment Course - LABORATORY CBC & Chemistry Diagram: 08/25/18 06:45 08/25/18 06:45 Medical Decision Making - Medical Decision Making 08/25/18 09:25 Patient noted to have intraventricular hemorrhage on CT scan involving the third and left lateral ventricle. He is hemodynamically and clinically stable at present. However, he remains confused. Neurologic exam is unchanged. There are no focal deficits [facility], neurological surgery team, was contacted by phone. They will accept the patien transfer. The patient will go to the ED and accepting physician will be . They will send their stat transport team with an ETA of approximately 25 minutes. *DC/Admit/Observation/Transfer Diagnosis at time of Disposition: Intracranial hemorrhage - Discharge Dispostion Disposition: TRANSFER ACUTE CARE/OTHER HOSP Condition at time of disposition: Stable Decision to Admit order: No - Referrals - Patient Instructions - Post Discharge Activity - Transfer to Acute Care Facility Receiving Facility: [facility]. Accepting Physician:: Azucena
[2018-08-25 08:46] LABS: INR 3.69 (0.82-1.09); PROTHROMBIN TIME (PATIENT) 40.3 SEC (10.2-13.0)
[2018-08-25] MEDS ORDERED: PHYTONADIONE 10 MG/1 ML AMP SQ ONE (09:05)
[2018-08-25] MEDS ORDERED: LABETALOL HCL 5 MG/1 ML (100MG/20 ML VIAL) IVPUSH ONE ×2 (09:05→09:45)
--- NOTE | 2018-08-25 09:13 | EKG ---
Test Reason : Blood Pressure : / mmHG Vent. Rate : 064 BPM Atrial Rate : 064 BPM P-R Int : 208 ms QRS Dur : 124 ms QT Int : 418 ms P-R-T Axes : 050 -27 151 degrees QTc Int : 431 ms NORMAL SINUS RHYTHM WITH 1ST DEGREE A-V BLOCK LEFT BUNDLE BRANCH BLOCK ABNORMAL ECG Confirmed by PONCE SIMS MD ([id number]) on 08/25/2018 9:13:29 AM Referred By: SHARIFA Confirmed By:PONCE SIMS MD
[2018-08-25] MEDS ORDERED: PHYTONADIONE 10 MG/1 ML AMP ONE (09:27)
[2018-08-25] MEDS ORDERED: LABETALOL HCL 5 MG/1 ML (100MG/20 ML VIAL) ONE (09:27)
[2018-08-25 09:31] LABS: EPI CELLS 1+ /HPF; URINE BACTERIA NONE SEEN /hpf (NEGATIVE); URINE WBC 0-3 (0-2)
[2018-08-25 09:43] VITALS: TEMP 98.5
[2018-08-25 09:54] VITALS: BP 147/80; PULSE 60
== END 2018-08-25 10:03 | disposition short-term general hospital (02) ==
LOC: FER 05:54
PROC: 3E033GC Introduction of Other Therapeutic Substance into Peripheral Vein, Percutaneous Approach (ICD-10-PCS; principal; 2018-08-25)
PROC: 3E013GC Introduction of Other Therapeutic Substance into Subcutaneous Tissue, Percutaneous Approach (ICD-10-PCS; 2018-08-25)
DX: I61.9 Nontraumatic intracerebral hemorrhage, unspecified (principal); I10 Essential (primary) hypertension; E78.5 Hyperlipidemia, unspecified; I69.351 Hemiplegia and hemiparesis following cerebral infarction affecting right dominant side; I48.91 Unspecified atrial fibrillation; G20 Parkinson's disease; Z91.038 Other insect allergy status; Z88.1 Allergy status to other antibiotic agents; Z79.01 Long term (current) use of anticoagulants; Z87.891 Personal history of nicotine dependence; Z85.828 Personal history of other malignant neoplasm of skin
CPT/HCPCS: 36415; 70450-TC; 71045-TC-FY; 80053; 81003; 81015; 82550; 84484; 85025; 85610; 93005; 96372; 96374; 96376; 99285-25